=== PATIENT | female | born 1985 | race Caucasian/White ===

== ENCOUNTER 2022-01-25 22:44 | Inpatient (IN) | payer OTHER ==
[2022-01-25] MEDS ORDERED: Diphenoxylate HCl/Atropine Tablet PO PRN (23:20)
[2022-01-25] MEDS ORDERED: Ondansetron PF 4 MG/2 ML Vial IVP PRN (23:20)
[2022-01-25] MEDS ORDERED: Promethazine HCl 25 MG/ML VIAL IM PRN (23:20)
[2022-01-25] MEDS ORDERED: Butorphanol Tartrate 1 MG/ML VIAL SLOW IVP PRN (23:20)
[2022-01-25] MEDS ORDERED: Carboprost 250 MCG/ML AMP IM PRN (23:20)
[2022-01-25] MEDS ORDERED: Misoprostol 200 MCG TAB PR PRN (23:20)
[2022-01-25] MEDS ORDERED: hydrALAZINE 20 MG/ML VIAL SLOW IVP PRN (23:20)
[2022-01-25] MEDS ORDERED: Methylergonovine 0.2 MG/ML VIAL IM PRN (23:20)
[2022-01-25] MEDS ORDERED: NS w/ Oxytocin 30 units 500 ML IV SCH (23:30)
[2022-01-25] MEDS ORDERED: Penicillin G Potassium 5 MILL.UNITS in Sodium Chloride 0.9% 100 ML IVPB SCH (23:30)
[2022-01-25 23:50] VITALS: BMI 30.5
[2022-01-26 00:18] LABS: Hemoglobin 12.9 g/dL (12.0-15.5); Mean Corpuscular HGB CONC 35.3 g/dL (32.0-36.0); Mean Corpuscular Hemoglobin 32.3 pg (27.0-33.0); Mean Corpuscular Volume 91.3 fl (81.6-98.3); Platelet Count 278 10x3/uL (150-450); RBC Distribution Width 12.9 % (11.5-14.5); White Blood Cell (WBC) Count 21.4 10x3/uL (3.5-10.5)
[2022-01-26 00:51] LABS: HBSAg Index 0.16 S/CO (0-0.99); Hep B Surf Ag Non-Reactive S/CO (NonReactive)
[2022-01-26 00:53] LABS: Syphilis Antibody Nonreactive (Nonreactive); Syphilis Antibody Index 0.02 S/CO (<1.00 Non-Reactive)
[2022-01-26] MEDS: Fentanyl 2 mcg/Bup 0.1% Cadd 100 ML ONE ×2 (02:23→08:36)
[2022-01-26] MEDS: Penicillin G 2.5 MILL.units 2.5 MILL.UNITS in Premix Bag 1 BAG IVPB SCH ×3 (03:42→11:52)
[2022-01-26 03:52] LABS: HIV (1/2) Antibody/Antigen Non-Reactive (NonReactive); HIV 1/2 INDEX 0.05 S/CO (<1.00)
[2022-01-26] MEDS ORDERED: Fentanyl 2 mcg/Bup 0.1% Cadd 100 ML ONE (08:27)
[2022-01-26] MEDS: Lactated Ringer's 1,000 ML IV SCH (08:47)
[2022-01-26] MEDS ORDERED: Promethazine HCl 25 MG/ML VIAL IM PRN (08:48)
[2022-01-26] MEDS ORDERED: Naloxone HCl 0.4 mg/ml Vial IVP PRN ×2 (08:48)
[2022-01-26] MEDS ORDERED: diphenhydrAMINE 50 MG/ML VIAL IVP PRN (08:48)
[2022-01-26] MEDS ORDERED: Ondansetron PF 4 MG/2 ML Vial IVP PRN (08:48)
[2022-01-26] MEDS ORDERED: Moisturizing Cream (Eucerin) 113 GM JAR TOP PRN (08:48)
[2022-01-26] MEDS ORDERED: ePHEDrine Sulfate 50 MG/10 ML VIAL SLOW IVP PRN (08:48)
[2022-01-26] MEDS ORDERED: Acetaminophen 325 MG TAB PO PRN (08:48)
[2022-01-26 08:59] LABS: SARS-CoV-2 NAA Rapid Test Not Detected (NotDetected)
[2022-01-26] MEDS ORDERED: Communication Order-Pharmacy FS SCH (09:00)
[2022-01-26] MEDS ORDERED: Fentanyl 2 mcg/Bupivacaine 0.1% Cassette 100 ML EPIDURAL SCH (09:00)
[2022-01-26] MEDS ORDERED: Lactated Ringer's 500 ML IV PRN (09:18)
[2022-01-26] MEDS ORDERED: Lidocaine 1% (PF) 30 ML VIAL ONE (13:52)
[2022-01-26] MEDS: Lidocaine 1% (PF) 30 ML VIAL SC PRN ×2 (14:00→14:12)
[2022-01-26] MEDS ORDERED: Lanolin Ointment 7 GM TUBE TOP PRN (14:35)
[2022-01-26] MEDS ORDERED: Preparation H Ointment 28 GM TUBE PR PRN (14:35)
[2022-01-26] MEDS ORDERED: Bisacodyl 10 MG SUPP PR PRN (14:35)
[2022-01-26 16:03] LABS: Hep B Surf AB Indeterminate (NonReactive)
[2022-01-26 16:04] LABS: HBSAB Concentration 8.22 mIU/mL
[2022-01-26] MEDS: Ibuprofen 800 MG TAB PO SCH (17:01)
[2022-01-26] MEDS: Docusate 100 MG CAP PO SCH (21:27)
[2022-01-26] MEDS: Ferrous Sulfate 325 MG TAB PO SCH (21:27)
[2022-01-27] MEDS: Ibuprofen 800 MG TAB PO SCH ×3 (03:19→16:47)
[2022-01-27] MEDS ORDERED: HYDROcodone/Acetaminophen 5/325 mg Tablet PO PRN ×2 (03:23)
[2022-01-27] MEDS: Lactated Ringer's 1,000 ML IV SCH (03:30)
[2022-01-27 05:19] LABS: Hemoglobin 11.7 g/dL (12.0-15.5); Mean Corpuscular HGB CONC 35.1 g/dL (32.0-36.0); Mean Corpuscular Hemoglobin 32.6 pg (27.0-33.0); Mean Corpuscular Volume 92.8 fl (81.6-98.3); Mean Platelet Volume 10.8 fl (7.4-10.4); Platelet Count 243 10x3/uL (150-450); Red Blood Cell (RBC) Count 3.59 10x6/uL (3.90-5.03); White Blood Cell (WBC) Count 21.7 10x3/uL (3.5-10.5)
[2022-01-27] MEDS ORDERED: Bupivacaine 0.25% HCL 30 ML VIAL ONE (08:00)
[2022-01-27] MEDS: Ferrous Sulfate 325 MG TAB PO SCH ×2 (08:22→22:27)
[2022-01-27] MEDS: Prenatal Vitamin 1 TAB PO SCH (08:23)
[2022-01-27] MEDS: Docusate 100 MG CAP PO SCH ×2 (08:23→22:28)
[2022-01-27] MEDS ORDERED: Boostrix 0.5 ML (Tdap) VIAL (>/=7 yrs of age) IM ONE (14:35)
[2022-01-27] MEDS: Milk Of Magnesia 30 ML UDCUP PO PRN (22:28)
[2022-01-28] MEDS: Ibuprofen 800 MG TAB PO SCH ×3 (00:06→16:26)
[2022-01-28 07:47] VITALS: BP 116/76; TEMP 97.6
[2022-01-28] MEDS: Docusate 100 MG CAP PO SCH (08:30)
[2022-01-28] MEDS: Ferrous Sulfate 325 MG TAB PO SCH (08:30)
[2022-01-28] MEDS: Prenatal Vitamin 1 TAB PO SCH (08:30)
[2022-01-28] MEDS: Milk Of Magnesia 30 ML UDCUP PO PRN (11:53)
== END 2022-01-28 16:55 | disposition home or self-care (01) | DRG 768 ==
LOC: CSHLD/OP 22:44 → CSHLD 23:22 → CSHPP 01-27 06:39
PROVIDERS: ADMIT Obstetrics & Gynecology; ATTEND Obstetrics & Gynecology
PROC: 10E0XZZ Delivery of Products of Conception, External Approach (ICD-10-PCS; principal; 2022-01-26)
PROC: 0DQR0ZZ Repair Anal Sphincter, Open Approach (ICD-10-PCS; 2022-01-26)
PROC: 0UQMXZZ Repair Vulva, External Approach (ICD-10-PCS; 2022-01-26)
PROC: 0W8NXZZ Division of Female Perineum, External Approach (ICD-10-PCS; 2022-01-26)
PROC: 10907ZC Drainage of Amniotic Fluid, Therapeutic from Products of Conception, Via Natural or Artificial Opening (ICD-10-PCS; 2022-01-26)
DX: O60.14X0 Preterm labor third trimester with preterm delivery third trimester, not applicable or unspecified (principal); Z37.0 Single live birth; O70.20 Third degree perineal laceration during delivery, unspecified; O75.2 Pyrexia during labor, not elsewhere classified; Z3A.36 36 weeks gestation of pregnancy; O71.82 Other specified trauma to perineum and vulva; O34.211 Maternal care for low transverse scar from previous cesarean delivery; O75.81 Maternal exhaustion complicating labor and delivery; O76 Abnormality in fetal heart rate and rhythm complicating labor and delivery; Z20.822 Contact with and (suspected) exposure to COVID-19
CPT/HCPCS: 51702; 85027; 86706; 86762; 86780; 86850; 86900; 86901; 87340; 87389; 99285; J2001; J2540; J2590; J3490; S0020; U0002